=== PATIENT | female | born 1985 | race American Indian/Alaskan Native ===

== ENCOUNTER 2018-03-09 07:19 | Day surgery (SDC) | payer OTHER ==
[2018-02-22 09:46] VITALS: BMI 43.4
[~2018-03-09 07:19] MED LIST: Clindamycin 600mg/50ml NS 600 MG/50 ML BAG IVPB ONE; EPINEPHrine 1:1000 Nasal Sol(30mL) ONE; Lidocaine/Epinephrine 1% 1:100000 10 ML IJ ONE
[2018-03-09] MEDS ORDERED: Acetaminophen-Codeine 300/30 mg Tab PO PRN (08:25)
[2018-03-09] MEDS ORDERED: Dextrose 5%/0.45% NS 1,000 ML IV SCH (08:30)
[2018-03-09] MEDS ORDERED: Lactated Ringer's 1,000 ML IV ONE (09:45)
[2018-03-09] MEDS ORDERED: Succinylcholine Chloride 20 mg/ml Syr (5 ml) IV ONE (09:48)
[2018-03-09] MEDS ORDERED: Midazolam 2 MG/2 ML VIAL ONE (09:48)
[2018-03-09] MEDS ORDERED: Propofol 10 mg/ml Inj (20 ML) ONE (09:48)
[2018-03-09] MEDS ORDERED: Rocuronium 10 mg/ml (5 ml) ONE (09:48)
[2018-03-09] MEDS ORDERED: HYDROmorphone 0.5 mg/0.5 ml ISec IVP PRN (11:20)
[2018-03-09] MEDS ORDERED: Lactated Ringer's 1,000 ML IV SCH (11:30)
[2018-03-09] MEDS ORDERED: HYDROmorphone 0.5 mg/0.5 ml ISec ONE (11:35)
[2018-03-09] MEDS ORDERED: Dextrose 5%/0.45% NS 1,000 ML IV ONE (13:10)
[2018-03-09 13:43] VITALS: RESP 16
[2018-03-09 15:14] VITALS: BP 111/53; PULSE 81; TEMP 97.9; O2SAT 95
--- NOTE | 2018-03-09 22:07 | OP ---
PROCEDURE DATE: 03/09/2018 SURGEON: Yvon Miller MD PREOPERATIVE DIAGNOSES: Sinusitis, large turbinates. POSTOPERATIVE DIAGNOSES: Sinusitis, large turbinates. PROCEDURE: Bilateral endoscopic ethmoidectomy, bilateral endoscopic inferior turbinate reduction, right endoscopic frontal sinusotomy. FINDINGS: Sinusitis, large turbinates. Frontal recess stenosis. Ethmoid sinuses had sinusitis changes. DESCRIPTION OF PROCEDURE: The patient was brought into room, placed in supine position. Anesthesia was initiated through an ET tube, and navigation was set up and used throughout the case in order to ensure the skull base and orbit were not entered. Adrenaline-soaked pledgets were inserted into nasal cavity, remained there for at least 5 minutes and removed. The patient was draped in the usual manner. A 0-degree scope was inserted into the left nasal cavity. The inferior turbinate was injected with lidocaine with epinephrine and medialized. The patient had prior ethmoidectomy done. However, some of the ethmoid air cells had closed. Upbiting forceps were used to open up the ethmoid sinuses. First, the skull base was identified and followed anteriorly in order to open up the ethmoid sinuses. Bleeding was controlled using adrenaline-soaked pledgets. Attention was turned to the other side. The middle turbinate was injected with lidocaine with epinephrine and medialized. Ethmoidectomy had been previously done. The skull base was identified posteriorly and followed anteriorly, and the ethmoid air cells were opened as this was being done. Next, the frontal recess was noted to be stenosed and opened using forceps. Bleeding was controlled using adrenaline-soaked pledgets. Stents were placed. The patient was taken off anesthesia and taken to recovery room in stable manner. Yvon Miller MD
== END 2018-03-09 14:15 | disposition home or self-care (01) ==
LOC: C.SDS 07:19
PROVIDERS: ATTEND Otolaryngology
DX: J34.3 Hypertrophy of nasal turbinates (principal); J32.1 Chronic frontal sinusitis; J32.2 Chronic ethmoidal sinusitis
CPT/HCPCS: 30140; 31276; 88304; 88311; J2250; J2405; J2704; J3010; J7042; J7120

== ENCOUNTER 2019-01-14 08:28 | Outpatient (CLI) | payer BC | END 2019-01-14 08:29 | disposition home or self-care (01) | LOC: C.LAB 08:28 | DX: Z00.00 Encounter for general adult medical examination without abnormal findings (principal) ==